=== PATIENT | female | born 1995 | race Two or more races ===

== ENCOUNTER 2019-02-17 14:18 | Emergency (ER) | payer OTHER ==
[2019-02-17 14:27] VITALS: BP 108/58
--- NOTE | 2019-02-17 15:12 | ED Physician Documentation ---
History of Present Illness - Stated complaint Stated Complaint: LF TOE PX/SWELLING - Chief complaint Chief Complaint: Ext Problem - History obtained from History obtained from: Patient - History of Present Illness Timing: How many days ago (3) Pain level max: 6 Pain level now: 4 Improved by: Rest Worsened by: Walking - Additonal information Additional information: L great toe swelling, redness. worse with palpation, better with rest. Patient states that this started with an ingrown toenail, which she tried to remove by herself. Now increasing redness to the toe Review of Systems Constitutional: denies: Fever, Chills GI: denies: Nausea, Vomiting : denies: Now EGA PD PAST MEDICAL HISTORY - Past Medical History Past Medical History: No - Past Surgical History Past Surgical History: Yes HEENT: Tonsil/Adenoidectomy - Present Medications Home Medications: Ambulatory Orders Medication Instructions Recorded Confirmed Cephalexin [Keflex] 500 mg PO Q6H #28 capsule 02/17/19 - Allergies Allergies/Adverse Reactions: Allergies Allergy/AdvReac Type Severity Reaction Status Date / Time No Known Drug Allergies Allergy Verified 02/17/19 14:22 - Social History Does the pt smoke?: No Smoking Status: Never smoker Does the pt drink ETOH?: Yes Does the pt have substance abuse?: No PD ED PE NORMAL - Vitals Vital signs reviewed: Yes - General General: Alert and oriented X 3, No acute distress - Derm Derm: Warm and dry - Extremities Extremities: Other (Left great toe - Mild erythema to the lateral aspect of the left great toe along the nail fold. No induration. Neurovascularly intact) - Neuro Neuro: Alert and oriented X 3 Results - Vitals Vitals: Vital Signs - 24 hr 02/17/19 14:23 Temperature 36.5 C Heart Rate 80 Respiratory 16 Rate Blood Pressure 108/58 L O2 Saturation 100 Oxygen O2 Source Room air PD MEDICAL DECISION MAKING - ED course Complexity details: considered differential, d/w patient ED course: Patient with an early paronychia to the left great toe. Will place on antibiotics for this. Is not ready to drain at this point. Will continue warm soaks at home as well. Patient counseled regarding signs and symptoms for which I believe and urgent re-evaluation would be necessary. Patient with good understanding of and agreement to plan and is comfortable going home at this time This document was made in part using voice recognition software. While efforts are made to proofread this document, sound alike and grammatical errors may occur. Departure - Departure Disposition: 01 Home, Self Care Clinical Impression: Paronychia Condition: Good Instructions: ED Fingernail Infec Follow-Up: your,doctor in 3 days for recheck [Other] Prescriptions: Cephalexin [Keflex] 500 mg PO Q6H #28 capsule Comments: Take all antibiotics until gone. Soak the toe 2-3 times a day for 10 minutes at a time in warm water. Return if you worsen. Follow-up with your doctor in 3 days for a wound check. Discharge Date/Time: 02/17/19 15:30
== END 2019-02-17 15:30 | disposition home or self-care (01) ==
LOC: ED 14:18
DX: L03.032 Cellulitis of left toe (principal)
CPT/HCPCS: 99282; 99283